=== PATIENT | female | born 1965 | race Caucasian/White ===

== ENCOUNTER 2021-04-29 15:18 | Emergency (ER) | payer MEDICAID ==
[~2021-04-29] VITALS: Ht 157.5 cm; Wt 38.0 kg
[~2021-04-29 15:18] MED LIST: DIPH1TAB PO; DOXY-243 PO; GLYB5TAB7 PO; NICO-687 TD
[2021-04-29 15:50] VITALS: BP 149/101
[2021-04-29] MEDS ORDERED: ondansetron 4mg rapidly disintigrating tab PO ONE (16:40)
[2021-04-29 17:21] LABS: BASOPHILS % (AUTO) 0.2 % (0-1); EOSINOPHILS % (AUTO) 0.1 % (0-6); HEMATOCRIT 45.8 % (35.0-45.0); HEMOGLOBIN 15.4 g/dl (12.0-16.0); LYMPHOCYTES # (AUTO) 1.4 X10'3 (1.1-4.8); LYMPHOCYTES % (AUTO) 15.2 % (21-51); MEAN CORPUSCULAR HGB CONC 33.7 g/dL (33.0-36.5); MEAN CORPUSCULAR VOLUME 95.1 FL (78-98); MEAN PLATELET VOLUME 8.3 FL (7.4-10.4); MONOCYTES # (AUTO) 0.5 X10'3 (0-0.9); MONOCYTES % (AUTO) 5.7 % (2-12); NEUTROPHILS # (AUTO) 7.3 X10'3 (1.8-7.7); NEUTROPHILS % (AUTO) 78.8 % (42-75); PLATELET COUNT 380 X10'3 (140-440); RED BLOOD COUNT 4.81 X10'6 (4.20-5.60); RED CELL DISTRIBUTION WIDTH 12.9 % (11.5-14.5); WHITE BLOOD COUNT 9.2 X10'3 (4.5-11.0)
[2021-04-29 17:47] LABS: ALANINE AMINOTRANSFERASE 36 U/L (12-78); ALBUMIN 3.6 G/DL (3.4-5.0); ALBUMIN/GLOBULIN RATIO 0.8 (1.1-1.5); ALKALINE PHOSPHATASE 156 IU/L (46-116); ANION GAP 13 (8-16); ASPARTATE AMINO TRANSFERASE 14 U/L (10-37); BILIRUBIN,TOTAL 0.2 MG/DL (0.1-1.0); BLOOD UREA NITROGEN 13 MG/DL (7-18); BUN/CREATININE RATIO 15.7 (6.6-38.0); CALCIUM 9.2 MG/DL (8.5-10.1); CHLORIDE 93 MMOL/L (99-107); CREATININE 0.83 MG/DL (0.40-0.90); POTASSIUM 3.9 MMOL/L (3.5-5.1); SODIUM 125 MMOL/L (135-145); TOTAL CARBON DIOXIDE 18.9 MMOL/L (24-32); TOTAL PROTEIN 8.2 G/DL (6.4-8.2); eGFR 72 ML/MIN
[2021-04-29 17:51] LABS: GLUCOSE 578 MG/DL (70-104)
[2021-04-29] MEDS ORDERED: normal saline 1000ML IV soln IVB ONE ×2 (18:05→21:30)
[2021-04-29] MEDS ORDERED: insulin regular, human 10 units/0.1 ml syringe SQ ONE (18:05)
--- NOTE | 2021-04-29 18:29 | NUR ---
PT AMB WITH STEADY GAIT FROM AMBULANCE BAY TO ROOM 15,
[2021-04-29] MEDS ORDERED: proCHLORperazine 10mg tablet PO ONE (21:30)
[2021-04-29] MEDS ORDERED: insulin regular, human 10 units/0.1 ml syringe IV ONE (21:30)
[2021-04-29] MEDS ORDERED: acetaminophen 325mg tablet PO ONE (21:40)
[2021-04-29] MEDS ORDERED: ONDA4TAB6 PO (23:07)
== END 2021-04-29 23:18 | disposition home or self-care (01) ==
LOC: ER 15:18
DX: U07.1 COVID-19 (principal); E11.65 Type 2 diabetes mellitus with hyperglycemia; R06.02 Shortness of breath; R11.0 Nausea; E87.1 Hypo-osmolality and hyponatremia; R43.8 Other disturbances of smell and taste; J02.9 Acute pharyngitis, unspecified; R50.9 Fever, unspecified; G89.29 Other chronic pain; Z87.442 Personal history of urinary calculi; Z90.89 Acquired absence of other organs; Z98.890 Other specified postprocedural states; Z59.00 Homelessness unspecified; Z88.2 Allergy status to sulfonamides; Z79.2 Long term (current) use of antibiotics; Z79.899 Other long term (current) drug therapy
CPT/HCPCS: 36415; 71045; 80053; 82948; 85025; 87635; 96372; 96374; 99285; C9803; J1815; J7030; Q0164